=== PATIENT | female | born 1995 | race Caucasian/White ===

== ENCOUNTER 2021-03-12 03:15 | Emergency (ER) | payer MEDICAID, SELFPAY ==
[2021-03-12 03:45] VITALS: BP 98/70; PULSE 97; RESP 20; TEMP 36.3; O2SAT 96; BMI 17.2
== END 2021-03-12 05:50 | disposition left against medical advice (07) ==
PROVIDERS: Emergency Provider Emergency Medicine
DX: R42 Dizziness and giddiness (principal)
CPT/HCPCS: 99282; 99283